=== PATIENT | male | born 1960 | race Caucasian/White ===

== ENCOUNTER → 2020-09-12 11:32 | Outpatient (BNVA) | payer OTHER, SELFPAY | PROVIDERS: PCP Family Medicine; Visit Provider Urology ==

== ENCOUNTER 2020-09-12 12:09 | Outpatient (REF) | payer OTHER, SELFPAY ==
[2020-09-12 14:40] LABS: PSA,Total (Free>4and<10) 0.08 ng/mL (0.00-4.00)
== END 2020-09-12 12:10 | disposition home or self-care (01) ==
LOC: HO.10HDL 12:09
PROVIDERS: Visit Provider Urology
DX: N40.1 Benign prostatic hyperplasia with lower urinary tract symptoms (principal); N13.8 Other obstructive and reflux uropathy; Z12.5 Encounter for screening for malignant neoplasm of prostate
CPT/HCPCS: 51798; 36415; 84153

== ENCOUNTER 2020-10-06 08:08 | Day surgery (SDC) | payer OTHER, SELFPAY ==
[2020-10-01 11:59] VITALS: BMI 29.8
[2020-10-01 12:16] VITALS: BP 121/65; PULSE 60; RESP 20; O2SAT 95
--- NOTE | 2020-10-01 12:18 | HO.ANESPROP2 ---
Documented by User: Ena Moe 10/02/20 13:16 HPI - Anesthesia Eval Consult details Narrative: 60yo M for Cystoscopy, flexible ? inebriated at PAT appointment - BAL ordered... ETOH negative. Baseline cognition. *suboxone for h/o opioid abuse* *AICD - CMP, VTACH* PMFSH Active Problems Active Problems: All Active Problems (Updated 10/01/20 @ 12:11 by Katharine Gastelum) BPH with obstruction/lower urinary tract symptoms (Acute) Past Medical History Medical History Anxiety Arrhythmia BPH (benign prostatic hyperplasia) BPH with obstruction/lower urinary tract symptoms Cardiomyopathy Chronic renal insufficiency Cognitive disorder COPD (chronic obstructive pulmonary disease) Depression Diabetes mellitus, type II Dysphagia Elevated cholesterol GERD (gastroesophageal reflux disease) Hepatitis Hesitancy of micturition HTN (hypertension) Hyperkalemia Opioid dependence Thyroid disease Narrative: Denies CP/SOB. >4 mets with walking. No recent illness. Denies extremity edema. Family History Family history of problems with anesthesia: No Surgical History Surgical History H/O colonoscopy History of automatic internal cardiac defibrillator (AICD) Hx of inguinal hernia repair History of Problems with Anesthesia: No Social History Social History Are you a primary occasional caregiver to a significant other at home: No Do you presently have visiting nurse or other home services: Yes Smoking Status: Former smoker Smoking Quit Date: 2009 Use of substances other than those prescribed or required for medical reasons: Yes Substance Use Type Other:: taking suboxone Have you been hit, kicked, punched, or otherwise hurt by someone within the past year? If so, by whom?: No Advance Directives Information Provided: No Recently lost weight without trying: No Meds Allergies Allergy/AdvReac Type Severity Reaction Status Date / Time SIVA Inhibitors Allergy Intermediate ANGIOEDEMA Verified 09/30/20 08:48 [Siva Inhibitors] Home Medications Medication Instructions Recorded Confirmed Last Taken Type omeprazole 20 mg capsule,delayed 20 mg PO DAILY 09/12/20 10/01/20 10/06/20 06:00 History release ondansetron 4 mg disintegrating 4 mg PO Q8H 09/12/20 10/01/20 Unknown History tablet pregabalin 50 mg capsule 50 mg PO DAILY 09/12/20 10/01/20 Unknown History silver sulfadiazine 1 % topical 1 appl TOPICAL DAILY 09/12/20 10/01/20 Unknown History cream tamsulosin 0.4 mg capsule 0.4 mg PO BEDTIME 09/12/20 10/01/20 Unknown History tolnaftate 1 % topical powder 1 appl TOPICAL BEDTIME 09/12/20 10/01/20 Unknown History valsartan 40 mg tablet 40 mg PO BID 09/12/20 Unknown History acetaminophen 650 mg PO QID PRN 10/01/20 10/01/20 Unknown History amiodarone 200 mg PO DAILY 10/01/20 10/01/20 10/06/20 06:00 History aspirin 81 mg PO DAILY 10/01/20 10/01/20 10/05/20 06:00 History atorvastatin 40 mg PO BEDTIME 10/01/20 10/01/20 Unknown History buprenorphine-naloxone [Suboxone] 4 film SUBLINGUAL DAILY 10/01/20 10/01/20 10/06/20 06:00 History cetirizine 10 mg PO DAILY 10/01/20 10/01/20 Unknown History cholecalciferol (vitamin D3) 50 mcg PO DAILY 10/01/20 10/01/20 Unknown History [Vitamin D3] clonazepam 0.25 mg PO BID 10/01/20 10/01/20 Unknown History ferrous sulfate 325 mg PO DAILY 10/01/20 10/01/20 Unknown History fluoxetine 60 mg PO DAILY 10/01/20 10/01/20 10/06/20 06:00 History hydrochlorothiazide 25 mg PO DAILY 10/01/20 10/01/20 Unknown History insulin aspart U-100 [Novolog 6 - 11 unit SUBCUT TID 10/01/20 10/01/20 Unknown History Flexpen U-100 Insulin] insulin glargine [Lantus Solostar 27 unit SUBCUT QAM 10/01/20 10/01/20 10/06/20 06:00 History U-100 Insulin] ipratropium bromide 1 puff INHALATION QID 10/01/20 10/01/20 Unknown History levothyroxine 125 mcg PO DAILY 10/01/20 10/01/20 10/06/20 06:00 History magnesium oxide 420 mg PO DAILY 10/01/20 10/01/20 Unknown History metoprolol succinate 25 mg PO DAILY 10/01/20 10/01/20 10/06/20 06:00 History mexiletine 200 mg PO BID 10/01/20 10/01/20 Unknown History zolpidem 10 mg PO BEDTIME PRN 10/01/20 10/01/20 Unknown History Exam Exam Date and Time: October 01, 2020 1218 Height,Weight and Vital Signs: Height 5 ft 9 in Weight 91.626 kg Last Vital Signs Pulse 60 10/01/20 12:16 Resp 20 10/01/20 12:16 BP 121/65 10/01/20 12:16 Pulse Ox 95 10/01/20 12:16 Pertinent Lab Results Pertinent Lab Results: Laboratory Tests 10/01/20 10/01/20 13:05 13:05 WBC 8.9 Hgb 11.7 L Hct 35.0 L Plt Count 147 L Sodium 138 Potassium 4.5 Chloride 99 Carbon Dioxide 28 BUN 36 H Creatinine 2.03 H Laboratory Tests 10/01/20 13:05 Ethyl Alcohol < 10 Narrative Narrative: [facility] 11/2018 per 07/2020 Cardiac Note LVEF 45-50% (up from 30s% in 2006), no valve disease EKG 07/2020 Apaced rhythm with prolonged AV conduction IV conduction delay Nonspecific ST and T wave abn Abnormal EKG AICD Interr 07/2020 Mode: DDDR 60/120 Most recent NSVT episode 08/2019 (11 NSVT episodes logged, brief) H/O shocks x 3 (r/t hypoglycemia and pna) JOHNY: 2 years A-paced:93% V-paced: 10% Airway Mallampati Class: III TM Dist: >3cm Neck ROM: Full Denture: Upper Loose/Missing/Broken Teeth: Yes (Poor lower dentition. No teeth loose per patient. Molars all pulled.) Heart: RRR, AICD palpable in L chest Lungs: CTAB Assessment and Plan Assessment Anesthesia Assessment: Anesthesia Plan Discussed and PAT Visit Documented by User: Yoni Betts 10/06/20 09:58 COUNT INCLUDES THE [facility] Past Medical History Medical History Anxiety Arrhythmia BPH (benign prostatic hyperplasia) BPH with obstruction/lower urinary tract symptoms Cardiomyopathy Chronic renal insufficiency Cognitive disorder COPD (chronic obstructive pulmonary disease) Depression Diabetes mellitus, type II Dysphagia Elevated cholesterol GERD (gastroesophageal reflux disease) Hepatitis Hesitancy of micturition HTN (hypertension) Hyperkalemia Opioid dependence Thyroid disease Surgical History Surgical History H/O colonoscopy History of automatic internal cardiac defibrillator (AICD) Hx of inguinal hernia repair Social History Social History Are you a primary occasional caregiver to a significant other at home: No Do you presently have visiting nurse or other home services: Yes Smoking Status: Former smoker Smoking Quit Date: 2009 Use of substances other than those prescribed or required for medical reasons: Yes Substance Use Type Other:: taking suboxone Have you been hit, kicked, punched, or otherwise hurt by someone within the past year? If so, by whom?: No Advance Directives Information Provided: No Recently lost weight without trying: No Meds Allergies Allergy/AdvReac Type Severity Reaction Status Date / Time SIVA Inhibitors Allergy Intermediate ANGIOEDEMA Verified 09/30/20 08:48 [Siva Inhibitors] Home Medications Medication Instructions Recorded Confirmed Last Taken Type omeprazole 20 mg capsule,delayed 20 mg PO DAILY 09/12/20 10/01/20 10/06/20 06:00 History release ondansetron 4 mg disintegrating 4 mg PO Q8H 09/12/20 10/01/20 Unknown History tablet pregabalin 50 mg capsule 50 mg PO DAILY 09/12/20 10/01/20 Unknown History silver sulfadiazine 1 % topical 1 appl TOPICAL DAILY 09/12/20 10/01/20 Unknown History cream tamsulosin 0.4 mg capsule 0.4 mg PO BEDTIME 09/12/20 10/01/20 Unknown History tolnaftate 1 % topical powder 1 appl TOPICAL BEDTIME 09/12/20 10/01/20 Unknown History valsartan 40 mg tablet 40 mg PO BID 09/12/20 Unknown History acetaminophen 650 mg PO QID PRN 10/01/20 10/01/20 Unknown History amiodarone 200 mg PO DAILY 10/01/20 10/01/20 10/06/20 06:00 History aspirin 81 mg PO DAILY 10/01/20 10/01/20 10/05/20 06:00 History atorvastatin 40 mg PO BEDTIME 10/01/20 10/01/20 Unknown History buprenorphine-naloxone [Suboxone] 4 film SUBLINGUAL DAILY 10/01/20 10/01/20 10/06/20 06:00 History cetirizine 10 mg PO DAILY 10/01/20 10/01/20 Unknown History cholecalciferol (vitamin D3) 50 mcg PO DAILY 10/01/20 10/01/20 Unknown History [Vitamin D3] clonazepam 0.25 mg PO BID 10/01/20 10/01/20 Unknown History ferrous sulfate 325 mg PO DAILY 10/01/20 10/01/20 Unknown History fluoxetine 60 mg PO DAILY 10/01/20 10/01/20 10/06/20 06:00 History hydrochlorothiazide 25 mg PO DAILY 10/01/20 10/01/20 Unknown History insulin aspart U-100 [Novolog 6 - 11 unit SUBCUT TID 10/01/20 10/01/20 Unknown History Flexpen U-100 Insulin] insulin glargine [Lantus Solostar 27 unit SUBCUT QAM 10/01/20 10/01/20 10/06/20 06:00 History U-100 Insulin] ipratropium bromide 1 puff INHALATION QID 10/01/20 10/01/20 Unknown History levothyroxine 125 mcg PO DAILY 10/01/20 10/01/20 10/06/20 06:00 History magnesium oxide 420 mg PO DAILY 10/01/20 10/01/20 Unknown History metoprolol succinate 25 mg PO DAILY 10/01/20 10/01/20 10/06/20 06:00 History mexiletine 200 mg PO BID 10/01/20 10/01/20 Unknown History zolpidem 10 mg PO BEDTIME PRN 10/01/20 10/01/20 Unknown History Exam Airway Mallampati Class: II TM Dist: >3cm Neck ROM: Full Denture: Upper
[2020-10-01 13:44] LABS: Hemoglobin 11.7 g/dl (14.0-18.0); Mean Corpuscular HGB Conc 33.4 g/dl (31.0-36.0); Mean Corpuscular Hemoglobin 30.9 pg (27.0-33.0); Mean Corpuscular Volume 92.3 fL (80-98); Mean Platelet Volume 10.8 fL (9.4-12.4); Platelet Count 147 X10*3/uL (160-400); Red Blood Count 3.79 X10*6/uL (4.60-5.80); Red Cell Distribution Width 12.1 % (11.0-16.0); White Blood Count 8.9 X10*3/uL (4.8-10.8)
[2020-10-01 14:05] LABS: Ethanol < 10 mg/dL
[2020-10-01 14:10] LABS: Anion Gap 16 (12-20); Blood Urea Nitrogen 36 mg/dL (9-16); Calcium 8.8 mg/dL (8.4-10.2); Carbon Dioxide 28 mmol/L (22-29); Chloride 99 mmol/L (96-108); Creatinine Clr Calc Pharmacy 43.2; Estimated Glomerular Filt Rate 34; Glucose Random 250 mg/dL (60-115); Potassium 4.5 mmol/L (3.3-5.1); Sodium 138 mmol/L (135-145)
[2020-10-06] VITALS (7 sets, daily range): BP systolic 122–168; BP diastolic 59–85; PULSE 60–66; RESP 16–20; TEMP 36–36.4; O2SAT 97–99
[2020-10-06] MEDS: Lactated Ringers 1,000 ML 100 ML IVCONT (10:17)
[2020-10-06 10:27] LABS: Glucose, Whole Blood 241 mg/dL (60-115)
--- NOTE | 2020-10-06 11:38 | MHC.SHP ---
Pre-Procedural Eval Section B Chief Complaint: reflux Details of Present Illness: BPH unable to tolerate office cysto Relevant Family History (Specify if Yes): No Relevant Social History: None Present Medications: see Short Stay Collaborative assessment Medical History: No relevant PMH History of Previous Operations: No relevant previous surgery Allergies: Allergies Allergy/AdvReac Type Severity Reaction Status Date / Time SIVA Inhibitors Allergy Intermediate ANGIOEDEMA Verified 09/30/20 08:48 [Siva Inhibitors] Review of Systems Sugical H&P ROS: Negative: Constitution, Cardiovascular, Respiratory, Neurological, Psychiatric, Hem-Onc, Allergic/Immunologic, Gastrointestinal, Genitourinary, Musculoskeletal, Integumentary, Endocrine and Eyes/Ears/Nose/Throat Exam Surgical H&P Exam: Normal: HEENT, Normal: Heart, Normal: Lungs, Normal: Extremities, Normal: Abdomen, Normal: Skin and Normal: Neurological Plan Diagnosis/Plan: Unchanged I have reviewed the history and physical and performed a pertinent physical examination on my patient. No changes have occurred unless specified. Cystoscopy
--- NOTE | 2020-10-06 12:56 | PM.OP ---
Brief Operative Note Date of Service: 10/06/20 Pre-op diagnosis: weak stream Post-op diagnosis: same Procedure: cystoscopy Surgeon: Gurmeet Boo MD Anesthesia: MAC Estimated blood loss (mL): 0 Pathology: none sent Condition: stable Disposition: same day
[2020-10-06] MEDS: Phenazopyridine HCL 100 MG TABLET PO (13:10)
--- NOTE | 2020-10-15 08:06 | W.PM.OPN ---
Operative Note Operative Note Date of Service: 10/06/20 Narrative: PreOperative Diagnosis: BPH Post Operative Diagnosis: Bladder neurogenic Procedure: flexible cystoscopy Surgeon: Dr Gurmeet Boo Anesthesia: sedation Indications for procedure: Does not tolerate procedure in office due to PTSD Difficulty with bladder emptying Procedure: After informed consent was verified the patient was brought to the operating room and placed in a supine position. anesthesia was administered per protocol. Patient prepped and drapped in sterilke fashion Flexible cystoscopy perfromed NAD anterior or posterior urethra Normal prostate with good opening to bladder bladder large with moderate trabeculations, UO in normal position tolerated procedure well Pathology: none Drains: none
== END 2020-10-06 13:43 | disposition home or self-care (01) ==
PROVIDERS: Nurse Practitioner; Visit Provider Urology
PROC: 0TJB8ZZ Inspection of Bladder, Via Natural or Artificial Opening Endoscopic (ICD-10-PCS; CPT 52000; principal; 2020-10-06 10:10)
DX: N40.1 Benign prostatic hyperplasia with lower urinary tract symptoms (principal); N13.8 Other obstructive and reflux uropathy; R39.12 Poor urinary stream; E11.22 Type 2 diabetes mellitus with diabetic chronic kidney disease; I12.9 Hypertensive chronic kidney disease with stage 1 through stage 4 chronic kidney disease, or unspecified chronic kidney disease; N18.30 Chronic kidney disease, stage 3 unspecified; Z79.4 Long term (current) use of insulin; J44.9 Chronic obstructive pulmonary disease, unspecified; I42.8 Other cardiomyopathies; Z79.82 Long term (current) use of aspirin; Z79.899 Other long term (current) drug therapy; Z87.891 Personal history of nicotine dependence
CPT/HCPCS: 52000; 36415; 80048; 80320; 82947; 85027; J1100; J1580; J2250; J2405; J3010

== ENCOUNTER → 2020-10-14 09:54 | Outpatient (BNVA) | payer OTHER, SELFPAY | PROVIDERS: Visit Provider Urology ==